=== PATIENT | male | born 1995 | race Caucasian/White ===

== ENCOUNTER 2020-05-08 13:28 | Emergency (ER) | payer BC, OTHER ==
--- NOTE | 2020-05-08 13:59 | EDM.PDOC ---
ED [facility] GENERAL MEDICAL PROBLEM - General Chief Complaint: General Stated Complaint: tailbone pain Time Seen by Provider: 05/08/20 13:40 Source of Information: Reports: Patient History Limitations: Reports: No Limitations - History of Present Illness INITIAL COMMENTS - FREE TEXT/NARRATIVE: Patient comes into the emergency department complaints of tailbone discomfort. Patient states that he was skiing approximately 1 week ago and approximately 4 days after he was skiing He started noticing pain and discomfort on his lower sacrum area. He denies any injury to the area or falling and states that he does get sharp shooting pains on his legs at times. He also states that he does feel a large lump in his lower buttocks region that is not sure however he states that the tenderness and discomfort is getting more severe in that area. He denies any fever, nausea, vomiting, abdominal pain, genitourinary concerns, or peripheral edema. Patient states his been relatively healthy and has no other major concerns or complaints. Onset: Gradual Sacral Pain Score (Numeric/FACES): 6 - Related Data Allergies Allergy/AdvReac Type Severity Reaction Status Date / Time No Known Allergies Allergy Verified 05/08/20 13:40 Home Meds: Home Meds Sulfamethoxazole/Trimethoprim [Bactrim Ds Tablet] 1 each PO BID #14 tablet 05/08/20 [Rx] ED ROS GENERAL - Review of Systems Review Of Systems: Comprehensive ROS is negative, except as noted in HPI. Constitutional: Reports: No Symptoms HEENT: Reports: No Symptoms Respiratory: Reports: No Symptoms Cardiovascular: Reports: No Symptoms Endocrine: Reports: No Symptoms GI/Abdominal: Reports: No Symptoms : Reports: No Symptoms Musculoskeletal: Reports: No Symptoms Skin: Reports: No Symptoms Neurological: Reports: No Symptoms Psychiatric: Reports: No Symptoms Hematologic/Lymphatic: Reports: No Symptoms Immunologic: Reports: No Symptoms ED EXAM, GENERAL - Physical Exam Exam: See Below Exam Limited By: No Limitations General Appearance: Alert, WD/WN, No Apparent Distress Head: Atraumatic, Normocephalic Neck: Normal Inspection, Supple, Non-Tender, Full Range of Motion Respiratory/Chest: No Respiratory Distress, Lungs Clear, Normal Breath Sounds, No Accessory Muscle Use, Chest Non-Tender Cardiovascular: Normal Peripheral Pulses, Regular Rate, Rhythm, No Edema Rectal (Males) Exam: Perirectal Abscess Back Exam: Normal Inspection, Full Range of Motion Extremities: Normal Inspection, Normal Range of Motion, Non-Tender, Normal Capillary Refill Neurological: Alert, Oriented, CN II-XII Intact, Normal Gait Psychiatric: Normal Affect, Normal Mood Skin Exam: Warm, Dry, Intact ED GENERAL MEDICAL PROCEDURES - Laceration/Wound Repair Middle Buttock Lac/wound length in cm: 1.5 (scalpel used to make incision ) Appearance: Linear Distal NVT: Neuro & Vascular Intact, No Tendon Injury Anesthetic Type: Local Local Anesthesia - Lidocaine (Xylocaine): 2% with EPI Local Anesthetic Volume: 4cc Skin Prep: Chlorhexidine (Hibiciens) Exploration/Debridement/Repair: Foreign Material Removed (moderate amount of pus) Closed with: Other (packing ) Sterile Dressing Applied: Nurse Tetanus Status Addressed: Other Course - Vital Signs Last Recorded V/S: Last Vital Signs Temp 37.4 C 05/08/20 13:30 Pulse 105 H 05/08/20 13:30 Resp 16 05/08/20 13:30 BP 124/76 05/08/20 13:30 Pulse Ox 99 05/08/20 13:30 - Orders/Labs/Meds Orders: Active Orders 24 hr Category Date Time Status Lidocaine 2% w/EPINEPHrine [Xylocaine 2% with Med 05/08/20 13:45 Once EPINEPHrine 1:100,000] 20 ml INJECT ONETIME ONE Meds: Medications Discontinued Medications Generic Name Dose Route Start Last Admin Trade Name Donnellq PRN Reason Stop Dose Admin Ceftriaxone Sodium 1 gm/ 0 gm 05/08/20 13:44 Lidocaine HCl 2.1 ml IM 05/08/20 13:45 ONETIME ONE - Re-Assessments/Exams Free Text/Narrative Re-Assessment/Exam: 05/08/20 14:21 tolerated well. Moderate amount removed and felt much better after draining completed Departure - Departure Time of Disposition: 14:10 Disposition: Home, Self-Care 01 Condition: Good Clinical Impression: Abscess - Discharge Information *PRESCRIPTION DRUG MONITORING PROGRAM REVIEWED*: Not Applicable *COPY OF PRESCRIPTION DRUG MONITORING REPORT IN PATIENT JESSICA: Not Applicable Instructions: Skin Abscess, [id number], Sulfamethoxazole; Trimethoprim, SMX- TMP tablets, Probiotics Additional Instructions: 1. rest 2. increase your water intake 3. Take all antibiotics as prescribed even if feeling better 4. Take a probiotic while on antibiotics to help promote healthy GI motility 5. Activity and diet as tolerated 6. Can use Ibuprofen and tylenol for any fever or discomfort 7. Follow up with [facility] on Saturday for re-evaluation 8. Education provided to you regarding your illness, probiotics, antibiotic prescribed 9. Call with any questions or concerns Sepsis Event Note (ED) - Evaluation Sepsis Screening Result: No Definite Risk - Focused Exam Vital Signs: Vital Signs Temp Pulse Resp BP Pulse Ox 05/08/20 13:30 37.4 C 105 H 16 124/76 99 - My Orders Last 24 Hours: My Active Orders 05/08/20 13:45 Lidocaine 2% w/EPINEPHrine [Xylocaine 2% with EPINEPHrine 1:100,000] 20 ml INJECT ONETIME ONE - Assessment/Plan Last 24 Hours: My Active Orders 05/08/20 13:45 Lidocaine 2% w/EPINEPHrine [Xylocaine 2% with EPINEPHrine 1:100,000] 20 ml I NJECT ONETIME ONE Assessment:: 1. rectal abscess Plan: 1. Wound cleansing completed 2. Abscess drained 3. 1 gm Rocephin IM Given and script sent home with patient 4. Education regarding wound care, dressing changes, OTC medications, activity, diet, follow up care and when to seek care if warranted provided 5. Patient is to return to the clinic in 10 days to have sutures site evaluated and removed 6. Patient was encouraged to call or return if any questions or concerns arise.
[2020-05-08] MEDS: Lidocaine 2% with EPINEPHrine 1:100,000 20 ML MDV INJECT ONE (14:12)
[2020-05-08] MEDS: cefTRIAXone 1 GM, Lidocaine 1% 2.1 ML IM ONE ×2 (14:12)
== END 2020-05-08 14:17 | disposition home or self-care (01) ==
LOC: VM.ED 13:28
DX: K61.1 Rectal abscess (principal)
CPT/HCPCS: 10060; 87070; 87077; 96372; 99283; 99283-25; J0696; J2001